=== PATIENT | female | born 1980 | race Caucasian/White ===

== ENCOUNTER 2017-12-17 21:05 | Emergency (ER) | payer OTHER ==
[~2017-12-17] VITALS: Ht 167.6 cm; Wt 68.0 kg
--- NOTE | ~2017-12-17 | EKG ---
[address] [address] ELECTROCARDIOGRAM REPORT Name: YUNIEL TARANGO Room #: [facility]#: [id number] Admission: 12/17/17 Attend Phys: Discharge: 12/17/17 Date of : 84 Report #: [id number] THIS REPORT FOR: //name// [facility] ED Test Date: 2017-12-17 Test Time: 21:32:22 Pat Name: YUNIEL TARANGO Department: Room: Gender: F [employer]: [place] : 1980 Requested By: Robby Romo Order Number: [id number] MD: Davon Myers Measurements Intervals [place] Rate: 104 P: 19 [place]: 154 QRS: -19 QRSD: 90 T: 16 QT: 347 QTc: 457 Interpretive Statements Sinus tachycardia Inferior infarct, old No previous ECG available for comparison Electronically Signed On 12-18-2017 8:43:09 CDT by Davon Myers [email or web address] <ELECTRONICALLY SIGNED> By: Davon Myers MD, [facility] 12/18/17 [id number] Davon Myers MD, FACC /EPI
[2017-12-17 21:28] LABS: ABSOLUTE NEUTROPHILS 6.7 thou/uL (1.4-8.2); BASOPHILS 0.2 % (0.0-2.0); EOSINOPHILS 0.4 % (0.0-3.0); HEMATOCRIT 39.8 % (37.0-47.0); HEMOGLOBIN 13.7 gm/dL (12.0-15.0); LYMPHOCYTES 31.1 % (24.0-44.0); MCH 31.9 pg (26.0-34.0); MCHC 34.4 g/dL (28.0-37.0); MCV 92.8 fL (80.0-100.0); MONOCYTES 5.4 % (1.0-8.0); PLATELET COUNT 228 thou/uL (150-400); POLYS 62.9 % (36.0-66.0); RBC 4.29 mil/uL (4.20-5.00); WBC 10.6 thou/uL (4.0-11.0)
[2017-12-17 21:35] LABS: ANION GAP 11 mmol/L (7-16); BUN 11 mg/dL (7-18); CALCIUM 8.2 mg/dL (8.5-10.1); CHLORIDE 103 mmol/L (98-107); CO2 23 mmol/L (21-32); CREATININE 0.7 mg/dL (0.6-1.0); GLUCOSE 123 mg/dL (74-106); SALICYLATE < 2.8 mg/dL (2.8-20.0); SODIUM 137 mmol/L (136-145)
[2017-12-17 21:39] LABS: URINE BILIRUBIN NEGATIVE (Negative); URINE BLOOD NEGATIVE (Negative); URINE CLARITY CLEAR; URINE COLOR YELLOW; URINE GLUCOSE-RANDOM* NEGATIVE (Negative); URINE KETONES NEGATIVE (Negative); URINE LEUKOCYTES NEGATIVE (Negative); URINE NITRITE NEGATIVE (Negative); URINE PROTEIN (DIPSTICK) NEGATIVE (Negative); URINE SPECIFIC GRAVITY <= 1.005 (1.005-1.035); URINE UROBILINOGEN 0.2 E.U./dl (0.2-1.0)
[2017-12-17 21:45] LABS: AMP/METHAMP Negative (Negative); BARBITURATES Negative (Negative); BENZODIAZEPINES Negative (Negative); COCAINE Negative (Negative); METHADONE Negative (Negative); OPIATES Negative (Negative); PCP Negative (Negative)
[2017-12-17 22:52] VITALS: BP 116/63
== END 2017-12-17 22:53 | disposition home or self-care (01) ==
LOC: ER 21:05
PROVIDERS: Nurse Practitioner
DX: F10.129 Alcohol abuse with intoxication, unspecified (principal)